=== PATIENT | female | born 1970 | race Caucasian/White ===

== ENCOUNTER 2019-01-16 11:50 | Emergency (ER) | payer BC ==
[~2019-01-16] VITALS: Ht 162.6 cm; Wt 71.9 kg
[2019-01-16 12:01] VITALS: Ht 162.6 cm; Wt 71.9 kg
[2019-01-16 15:23] VITALS: BP 128/88
== END 2019-01-16 15:23 | disposition home or self-care (01) ==
LOC: ED 11:50
DX: S60.011A Contusion of right thumb without damage to nail, initial encounter (principal); R05 Cough; Z90.710 Acquired absence of both cervix and uterus; W23.0XXA Caught, crushed, jammed, or pinched between moving objects, initial encounter; Y93.89 Activity, other specified; Y92.89 Other specified places as the place of occurrence of the external cause; Y99.8 Other external cause status